=== PATIENT | female | born 1950 | race African-American/Black ===

== ENCOUNTER 2018-05-14 03:39 | Inpatient (IN) | payer MEDICARE ==
[2018-05-14] VITALS (17 sets, daily range): BP systolic 139–193; BP diastolic 60–92
[~2018-05-14] VITALS: Ht 172.7 cm; Wt 90.3 kg
[~2018-05-14 03:39] MED LIST: ABILIFY10 MG PO; ACTOS45 MG OR; ALTOPREV40 MG OR; AMITRIPTYLIN25 MG OR; AMLODIPINE5 MG OR; ASA LOW DOSE81 MG OR; BABY ASPIRIN81 MG OR; CLONIDINE0.2 MG PO; COLACE100 MG PO; ELAVIL25 MG OR; EVISTA60 MG PO; GLIPIZIDE XL5 MG OR; GLUCAGEN IJ; HUMALOG100 MG/ML SC; HUMULIN R1 ML IJ; HYDROCHLOROT25 MG PO; HYDROCHLOROTH12.5 MG OR; LANTUS SOLOSTAR SC; LANTUS100 MG/ML SC; LISINOPRIL2.5 MG PO; LISINOPRIL40 MG OR; METFORMIN1000 MG OR; METOPROLOL50 MG OR; NORVASC5 MG OR; RISPERDAL1 MG/ML OR; SIMVASTATIN20 MG PO; ZETIA10 MG OR; ZOCOR20 MG OR
[2018-05-14 04:09] LABS: IMMATURE GRANULOCYTES 0.4 % (0.0-1.0); MEAN CORPUSCULAR HGB 27.6 pG CALC (26.0-32.0); MEAN CORPUSCULAR HGB CONC 31.9 g/L CALC (32.0-36.0); NEUT# 3.44 thou/uL (2.00-7.15); RED BLOOD COUNT 5.51 mill/uL (4.20-5.60)
[2018-05-14 04:12] LABS: HEMATOCRIT 47.6 % (37.0-47.0); HEMOGLOBIN 15.2 g/dl (12.0-16.0); MEAN CELL VOLUME 86.4 fL CALC (80.0-100.0)
[2018-05-14 04:23] LABS: ALBUMIN 4.4 g/dL (3.2-5.0); ALKALINE PHOSPHATASE 143 u/l (38-126); ANION GAP 24 (6-22 (CALC)); BILIRUBIN, TOTAL 0.5 mg/dL (0.0-1.4); BUN 7 mg/dL (8-23); BUN/CREATININE RATIO 7 (12-20 (CALC)); CARBON DIOXIDE 19 mmol/l (22-30); CHLORIDE 99 mmol/l (95-108); GFR 55 ML/MIN (>=60 (CALC)); GFR FOR AFR.AMER. > 60 ML/MIN (>=60 (CALC)); MAGNESIUM 1.7 mg/dL (1.6-2.3); POTASSIUM 3.6 mmol/l (3.5-5.1); SGPT/ALT 19 u/l (11-66); SODIUM 139 mmol/l (137-146); TOTAL PROTEIN 7.6 g/dL (6.3-8.2)
[2018-05-14 04:28] LABS: URINE BILIRUBIN - DIPSTICK NEGATIVE (NEGATIVE); URINE BLOOD DIPSTICK TRACE-LYSED (NEGATIVE); URINE COLOR YELLOW; URINE GLUCOSE - DIPSTICK >=1000 mg/dL (NEGATIVE); URINE KETONE TRACE mg/dL (NEGATIVE); URINE LEUK ESTERASE NEGATIVE (NEGATIVE); URINE NITRITE - DIPSTICK NEGATIVE (Negative); URINE PH 5.5 (4.5-8.0); URINE PROTEIN - DIPSTICK NEGATIVE (NEG-TRACE); URINE SPECIFIC GRAVITY <=1.005; URINE UROBILINOGEN - DIPSTICK 0.2 E.U./dL (0.2)
[2018-05-14 04:29] LABS: URINE CLARITY SL CLOUDY
[2018-05-14 04:31] LABS: ETHYL ALCOHOL < 10 mg/dl (0-30); SGOT/AST 21 u/l (9-36)
[2018-05-14 04:32] LABS: BARBITURATES NEGATIVE (NEGATIVE); COCAINE NEGATIVE (NEGATIVE); METHADONE NEGATIVE (NEGATIVE); OXCYCODONE NEGATIVE (NEGATIVE); TETRAHYDROCANNABIONOL NEGATIVE (NEGATIVE); TRICYLIC ANTIDEPRESSANTS NEGATIVE (NEGATIVE)
[2018-05-14 04:34] LABS: MYOGLOBIN 369 ng/mL (0 - 62)
[2018-05-14] MEDS ORDERED: PLAVIX75 MG PO (07:33)
[2018-05-14 08:56] LABS: BUN 7 mg/dL (8-23); BUN/CREATININE RATIO 8 (12-20 (CALC)); CARBON DIOXIDE 15 mmol/l (22-30); CREATININE 0.8 mg/dL (0.5-1.0); GFR > 60 ML/MIN (>=60 (CALC)); GFR FOR AFR.AMER. > 60 ML/MIN (>=60 (CALC)); POTASSIUM 3.4 mmol/l (3.5-5.1); SODIUM 144 mmol/l (137-146)
[2018-05-14 08:57] LABS: ANION GAP 20 (6-22 (CALC)); CHLORIDE 112 mmol/l (95-108)
[2018-05-15] VITALS (13 sets, daily range): BP systolic 94–147; BP diastolic 50–82
[2018-05-15 04:55] LABS: HEMATOCRIT 42.3 % (37.0-47.0); HEMOGLOBIN 13.7 g/dl (12.0-16.0); IMMATURE GRANULOCYTES 0.3 % (0.0-1.0); MEAN CELL VOLUME 85.5 fL CALC (80.0-100.0); MEAN CORPUSCULAR HGB 27.7 pG CALC (26.0-32.0); MEAN CORPUSCULAR HGB CONC 32.4 g/L CALC (32.0-36.0); NEUT# 3.64 thou/uL (2.00-7.15); RED BLOOD COUNT 4.95 mill/uL (4.20-5.60); RED CELL DISTRI WIDTH 13.9 % (11.5-15.5)
[2018-05-15 05:07] LABS: BUN 6 mg/dL (8-23); BUN/CREATININE RATIO 8 (12-20 (CALC)); CHLORIDE 107 mmol/l (95-108); CREATININE 0.8 mg/dL (0.5-1.0); GFR > 60 ML/MIN (>=60 (CALC)); GFR FOR AFR.AMER. > 60 ML/MIN (>=60 (CALC)); SODIUM 140 mmol/l (137-146)
[2018-05-15 05:08] LABS: ANION GAP 8 (6-22 (CALC)); CARBON DIOXIDE 28 mmol/l (22-30); POTASSIUM 2.5 mmol/l (3.5-5.1)
[2018-05-15] MEDS ORDERED: LISINOPRIL20 M1 PO (21:24)
[2018-05-15] MEDS ORDERED: LEVETIRACETAM500 MG PO (21:25)
[2018-05-15] MEDS ORDERED: ADLT ASA LOW81 MG PO (21:25)
[2018-05-15] MEDS ORDERED: GABAPENTIN100 MG PO (21:26)
[2018-05-16] VITALS (7 sets, daily range): BP systolic 123–146; BP diastolic 74–85
[2018-05-16] MEDS ORDERED: COLACE100 MG PO (11:04)
[2018-05-16 11:48] LABS: HEMATOCRIT 45.4 % (37.0-47.0); HEMOGLOBIN 15.3 g/dl (12.0-16.0); IMMATURE GRANULOCYTES 0.5 % (0.0-1.0); MEAN CELL VOLUME 83.5 fL CALC (80.0-100.0); MEAN CORPUSCULAR HGB 28.1 pG CALC (26.0-32.0); MEAN CORPUSCULAR HGB CONC 33.7 g/L CALC (32.0-36.0); NEUT# 3.87 thou/uL (2.00-7.15); RED BLOOD COUNT 5.44 mill/uL (4.20-5.60); RED CELL DISTRI WIDTH 13.8 % (11.5-15.5)
[2018-05-16 13:57] LABS: ANION GAP 15 (6-22 (CALC)); BUN 11 mg/dL (8-23); BUN/CREATININE RATIO 15 (12-20 (CALC)); CARBON DIOXIDE 20 mmol/l (22-30); CHLORIDE 105 mmol/l (95-108); CREATININE 0.7 mg/dL (0.5-1.0); GFR > 60 ML/MIN (>=60 (CALC)); GFR FOR AFR.AMER. > 60 ML/MIN (>=60 (CALC)); POTASSIUM 4.2 mmol/l (3.5-5.1); SODIUM 135 mmol/l (137-146)
[2018-05-16 21:17] LABS: ANION GAP 18 (6-22 (CALC)); BUN 16 mg/dL (8-23); BUN/CREATININE RATIO 23 (12-20 (CALC)); CARBON DIOXIDE 20 mmol/l (22-30); CHLORIDE 99 mmol/l (95-108); CREATININE 0.7 mg/dL (0.5-1.0); GFR > 60 ML/MIN (>=60 (CALC)); GFR FOR AFR.AMER. > 60 ML/MIN (>=60 (CALC)); POTASSIUM 4.7 mmol/l (3.5-5.1); SODIUM 132 mmol/l (137-146)
[2018-05-17 04:02] VITALS: BP 148/91
[2018-05-17 04:48] LABS: HEMATOCRIT 49.4 % (37.0-47.0); HEMOGLOBIN 16.2 g/dl (12.0-16.0); IMMATURE GRANULOCYTES 0.5 % (0.0-1.0); MEAN CORPUSCULAR HGB 27.6 pG CALC (26.0-32.0); MEAN CORPUSCULAR HGB CONC 32.8 g/L CALC (32.0-36.0); NEUT# 5.18 thou/uL (2.00-7.15); RED BLOOD COUNT 5.88 mill/uL (4.20-5.60); RED CELL DISTRI WIDTH 13.5 % (11.5-15.5)
[2018-05-17 05:00] LABS: ANION GAP 14 (6-22 (CALC)); BUN 14 mg/dL (8-23); BUN/CREATININE RATIO 20 (12-20 (CALC)); CARBON DIOXIDE 26 mmol/l (22-30); CHLORIDE 102 mmol/l (95-108); CREATININE 0.7 mg/dL (0.5-1.0); GFR > 60 ML/MIN (>=60 (CALC)); GFR FOR AFR.AMER. > 60 ML/MIN (>=60 (CALC)); MAGNESIUM 1.5 mg/dL (1.6-2.3); POTASSIUM 4.2 mmol/l (3.5-5.1); SODIUM 138 mmol/l (137-146)
[2018-05-17 07:37] VITALS: BP 145/85
[2018-05-17 11:00] VITALS: BP 152/87
[2018-05-17] MEDS ORDERED: CYCLOBENZAPR5 MG PO (14:46)
[2018-05-17] MEDS ORDERED: KEPPRA1000 MG PO (14:46)
[2018-05-17 15:23] VITALS: BP 134/76
== END 2018-05-17 15:58 | disposition home health service (06) | DRG 100 ==
LOC: ED 03:39 → ED-I 05:10 → ED 05:39 → MS2 05:40 → ICU 05:40 → MS2 05-15 14:45
PROVIDERS: Family Medicine; Internal Medicine; Nurse Practitioner Family; ADMIT Internal Medicine; ATTEND Internal Medicine
PROC: 0T9B70Z Drainage of Bladder with Drainage Device, Via Natural or Artificial Opening (ICD-10-PCS; principal; 2018-05-14)
DX: G40.209 Localization-related (focal) (partial) symptomatic epilepsy and epileptic syndromes with complex partial seizures, not intractable, without status epilepticus (principal); E11.10 Type 2 diabetes mellitus with ketoacidosis without coma; I10 Essential (primary) hypertension; I25.10 Atherosclerotic heart disease of native coronary artery without angina pectoris; F32.9 Major depressive disorder, single episode, unspecified; E11.42 Type 2 diabetes mellitus with diabetic polyneuropathy; Z91.14 Patient's other noncompliance with medication regimen; Z79.4 Long term (current) use of insulin
CPT/HCPCS: J1953; J3360